=== PATIENT | male | born 1955 | race Caucasian/White ===

== ENCOUNTER 2024-12-14 17:18 | Emergency (ER) | payer MEDICARE, OTHER, SELFPAY ==
[2024-12-14 17:31] VITALS: BP 142/89
[2024-12-14 18:27] LABS: % Basophils 0.6 % (0-2); % Eosinophils 3.1 % (0-6); % Immature Granulocytes 0.2 % (0-0.5); % Lymphocytes 30.6 % (20.5-51.1); % Monocytes 6.5 % (1.7-9.3); Absolute Eosinophils 0.2 10^3/uL (0-0.7); Absolute Monocytes 0.4 10^3/uL (0.1-0.6); Absolute Neutrophils 3.9 10^3/uL (1.4-6.5); Hematocrit 38.3 % (39.0-52.0); Hemoglobin 12.3 g/dL (13.0-18.0); Mean Corp Hgb Conc. 32.1 g/dL (33.0-37.0); Mean Corpuscular Hgb 28.4 pg (27.0-31.0); Mean Corpuscular Volume 88.5 fL (80.0-94.0); Nucleated Red Blood Cells % 0 % (-); Platelet Count 263 10^3/uL (130-400); Red Blood Cell Count 4.33 10^6/uL (4.70-6.10); Red Cell Dist. Width 14.1 % (11.5-14.5); White Blood Cell Count 6.5 10^3/uL (4.8-10.8)
--- NOTE | 2024-12-14 18:35 | ED.GENMED ---
History of Present Illness
General
Chief Complaint: Seizure
Source: patient and spouse
Exam Limitations: none
Time Seen by Provider: 12/14/24 17:42
History of Present Illness
History of Present Illness:
68-year-old male complaining of episodes of aura of seizures. Started about a week ago. Historically has been tingling to the right arm. This has been more tingling of the right face with speech issues. Patient restarted Keppra initially taking
two 500 mg tablets on Monday and progressing to 8 tablets on Monday. No grand mal seizure. He has had grand mal seizures twice last 1985. Patient is here requesting different antiepileptic medications. Between episodes he feels fine.
Denies headache chest pain shortness of breath abdominal pain visual issues or other neurologic
Past History
Past History
ED Past Medical History: Seizures (Cavernous hemangioma), Hypothyroidism and Other (psoriatic arthritis - prescribed Embrel but only takes a dose every 2-3 weeks)
ED Past Surgical History: Other (left thyroidectomy)
Social History
Alcohol: None
Personal:
Living: with family
Review of Systems
Review of Systems
All Other Systems: Not applicable
Constitutional: Denies fever or chills
Neurological: Denies dizzy, headache or weakness
Phy Exam
Physical Exam
Physical Exam:
GENERAL: Alert and oriented in no apparent distress
EYE: Orbits normal.
NECK: Supple, no significant adenopathy.
ENT: Pharynx without erythema
CARDIAC: Regular rate and rhythm without any obvious murmurs.
LUNGS: Clear breath sounds,normal
ABDOMEN: Soft, without focal tenderness or distention
NEUROLOGICAL: Alert and oriented , grossly non-focal
SKIN: Warm and dry, no rash or lesion, no discoloration, skin intact.
MUSCULOSKELETAL: No edema,no deformity.Good color
PSYCH: Normal and appropriate interaction.
Course
Orders/Labs/Results
Orders:
Orders
12/14/24 17:58
CT Head W/o Iv Contrast Urgent
Comment:
Reason For Exam: Recurrent focal seizures
IV Insert/Care/Rem.- Treatment PRN
12/14/24 18:02
Basic Metabolic Panel Urgent
Complete Blood Count/With Diff Urgent
TSH Reflex To Free T4 Urgent
Comment: ADD ON
12/14/24 18:08
PSA Free & Total [S] Urgent
12/14/24 18:35
Lacosamide [Vimpat] 100 mg PO NOW STA
12/14/24 18:40
Add On- LAB Urgent
Tests Added?: TSH reflex to free
12/14/24 18:55
Acetaminophen [Tylenol Oral Solution] 650 mg .ROUTE .STK-MED ONE
12/14/24 20:02
Lacosamide [Vimpat] 100 mg PO NOW STA
Abnormal Lab Results
12/14/24
18:02
RBC 4.33 L 10^6/uL
(4.70-6.10)
Hgb 12.3 L g/dL
(13.0-18.0)
Hct 38.3 L %
(39.0-52.0)
MCHC 32.1 L g/dL
(33.0-37.0)
BUN 23 H mg/dl
(9-20)
Glucose 106 H mg/dl
(70-99)
12/14/24 18:02
12/14/24 18:02
Vital Signs
Initial and Last Documented VS:
Initial Vital Signs
Temp Pulse Resp BP Pulse Ox
98.0 F 84 18 142/89 96
12/14/24 17:31 12/14/24 17:31 12/14/24 17:31 12/14/24 17:31 12/14/24 17:31
Last Documented Vital Signs
Temp Pulse Resp BP Pulse Ox
98.2 F 68 16 142/83 98
12/14/24 19:31 12/14/24 19:31 12/14/24 19:31 12/14/24 19:31 12/14/24 19:31
*Radiology
Radiology exam reviewed: radiology read reviewed (No acute findings on CT)
*Pulse Oximetry
Patient hypoxic: no
*Critical Care Note
Total Time (30-74mins, 75-104mins- exclusive of procedures): Not Applicable
Update Note
Update Note:
Discussed with neurology. Recommending adding Vimpat 100 twice daily. Continue Keppra 2000 twice daily. Discussed with patient. Offered admission and observation versus outpatient. If all labs tests are stable patient would prefer outpatient
which is reasonable
Patient is remained medically stable nontoxic. Workup unremarkable. Discharged to follow-up
ED Attending Note
-
Portions of this chart may have been created with voice recognition software.� Occasional wrong word or��sound alike� substitutions may have occurred due to the inherent limitations of voice recognition software.
Discharge Plan
Departure
Patient Disposition: Home (Routine Discharge)
Date of Disposition: 12/14/24
Time of Disposition: 20:01
Patient with high blood pressure during this ER visit?: Yes
Discharge Problem:
Focal seizures
Instructions: Seizures, Adult (DC), BLOOD PRESSURE
Prescriptions:
New
lacosamide [Vimpat] 100 mg tablet
100 mg PO BID Qty: 60 0RF
levetiracetam [Keppra] 500 mg tablet
2,000 mg PO BID Qty: 240 0RF
No Action
levothyroxine [Synthroid] 50 mcg Tablet
75 mcg PO DAILY
Referrals:
Abel Mcclain MD [Active] - Next open appointment
Jed Whitaker DO [Family Provider] -
Activity Restrictions/Additional Instructions:
Follow-up closely with your primary physician and neurologist the prescriptions were sent to your pharmacy
Interventions
Interventions:
*Risk Screen - Suicide Last Done: 12/14/24 17:31
*General Assessment Last Done: 12/14/24 18:00
*Neglect/Abuse Screening Last Done: 12/14/24 18:00
ED- Fall Risk Assessment Last Done: 12/14/24 18:00
*ED COVID-19 Vaccine History Last Done: 12/14/24 17:31
*Nursing Disposition Last Done: 12/14/24 20:26
ED- Neurological Assessment Last Done: 12/14/24 19:37
ED- Pulmonary Assessment Last Done: 12/14/24 19:37
Discharge Date and Time
Discharge Date/Time: 12/14/24 20:26
Print Language: RWANDAN
--- NOTE | 2024-12-14 18:40 | EDRN ---
Upon entering the room patient is not dressed with the gown sitting on the garbage can. He states he did not need it. Patient is not sitting on the stretcher able to be monitored. I informed him that the doctor ordered him to be monitored. Patient
states he does not need that right now. Placed an IV while patient was in a chair without complications. While patient was talking about his condition he pointed out that he was having a seizure right now at the corner of his right lip. Speech was
clear and unable to discern any seizure activity from up close. Patient requested to have his PSA level tested as he has a script to get it done Monday. Spoke with Dr. Perez and will allow the test to be done.
Dr. Perez went to the patient again and came out informing this RN that he is going to take his own Keppra. Informed Dr. Perez that the Keppra was from years ago per what the patient was explaining to me. He took the Keppra he had from 2019.
Dr[address] Perez states he will give him a new prescription.
[2024-12-14 18:44] LABS: Blood Urea Nitrogen 23 mg/dl (9-20); Calcium 9.6 mg/dl (8.4-10.2); Carbon Dioxide 29 mmol/L (22-30); Chloride 104 mmol/L (98-107); Estimated Creatinine Clearance 79 ml/min; Glucose 106 mg/dl (70-99); Potassium 4.6 mmol/L (3.5-5.1); Sodium 140 mmol/L (135-145); eGFR > 60.00
[2024-12-14 19:29] LABS: TSH Reflex To Free T4 3.31 uIU/ml (0.47-4.68)
[2024-12-14 19:31] VITALS: BP 142/83
[2024-12-14] MEDS: VIMPAT 100 MG PO (19:32)
--- NOTE | 2024-12-14 20:17 | EDRN ---
This RN pulled vimpat from [facility] [employer] for Dr Perez who gave the vimpat to pt to take at home.
[2024-12-16 18:47] LABS: PSA Total 3.2 ng/mL (0.0-4.0)
== END 2024-12-14 20:26 | disposition home or self-care (01) ==
LOC: EMR 17:18
PROVIDERS: EMERGENCY PHYSICIAN Emergency Medicine; FAMILY PHYSICIAN Family Medicine
DX: G40.89 Other seizures (principal); E03.9 Hypothyroidism, unspecified; Z79.899 Other long term (current) drug therapy
CPT/HCPCS: 99284; 70450; 80048; 84153; 84154; 84443; 85025